=== PATIENT | female | born 2005 | race Caucasian/White ===

== ENCOUNTER 2024-09-02 10:31 | Emergency (ER) | payer MEDICAID ==
[~2024-09-02] VITALS: Ht 167.6 cm; Wt 85.0 kg
[2024-09-02 10:35] VITALS: O2SAT 100
[2024-09-02 10:47] VITALS: BP 113/75; PULSE 98; RESP 14; TEMP 37; O2SAT 99
[2024-09-02] MEDS: ACETAMINOPHEN 500MG TABLET PO ONE (11:03)
== END 2024-09-02 11:59 | disposition home or self-care (01) ==
LOC: ER 10:31
DX: R51.9 Headache, unspecified (principal); Z55.6 Problems related to health literacy; Y04.0XXA Assault by unarmed brawl or fight, initial encounter; Y93.89 Activity, other specified; Y92.89 Other specified places as the place of occurrence of the external cause; Y99.8 Other external cause status
CPT/HCPCS: 99282; 99283